=== PATIENT | male | born 1980 | race Caucasian/White ===

== ENCOUNTER 2021-10-25 18:18 | Emergency (ER) | payer SELFPAY ==
[~2021-10-25] VITALS: Ht 172.7 cm; Wt 74.8 kg
[2021-10-25 20:48] LABS: HEMATOCRIT 43.7 % (36.7-47.1); MEAN CORPUSCULAR HEMOGLOBIN 26.9 uug (23.8-33.4); MEAN CORPUSCULAR VOLUME 80.6 fL (73.0-96.2); PLATELET COUNT (AUTO) 72 K/uL (152-348)
[2021-10-25 20:52] LABS: CREATININE 1.1 mg/dL (0.6-1.3)
[2021-10-25 20:58] LABS: BILIRUBIN,DIRECT 0.1 mg/dL (0.0-0.2); BILIRUBIN,TOTAL 0.3 mg/dL (0.2-1.0); TOTAL PROTEIN, SERUM 6.8 g/dL (6.4-8.2)
[2021-10-25 21:28] LABS: *MONOTEST NEGATIVE (NEGATIVE)
[2021-10-25 22:35] VITALS: BP 120/75
[2021-10-25 22:36] LABS: BAND % (MANUAL) 5 % (0-10); LYMPHOCYTES % (MANUAL) 47 % (20-40); MONOCYTES % (MANUAL) 10 % (2-10); NEUTROPHILS % (MANUAL) 30 % (42-75)
== END 2021-10-25 22:36 | disposition home or self-care (01) ==
LOC: ER 18:26
DX: B34.9 Viral infection, unspecified (principal); D69.6 Thrombocytopenia, unspecified; R74.01 Elevation of levels of liver transaminase levels; Z20.822 Contact with and (suspected) exposure to COVID-19
CPT/HCPCS: 36415; 70030-TC; 85025; 86308; 86403; 87070; 87400; A4663